=== PATIENT | female | born 1990 | race Hispanic/Latino ===

== ENCOUNTER 2022-12-27 21:58 | Emergency (ER) | payer OTHER, MEDICAID ==
[~2022-12-27] VITALS: Ht 162.6 cm; Wt 120.0 kg
[2022-12-27 22:20] VITALS: BP 110/69
[2022-12-27 22:22] LABS: BASO% 0.3 % (0-3); EOS% 1.7 % (0-8); HEMATOCRIT 42.1 % (37.0-47.0); HEMOGLOBIN 13.7 g/dl (12.0-16.0); IMMATURE GRANULOCYTES 0.2 % (0.0-5.0); LYMPH% 43.3 % (15-41); MEAN CORPUSCULAR HGB 31.6 pG CALC (26.0-32.0); MEAN CORPUSCULAR HGB CONC 32.5 g/dL CAL (32.0-36.0); MONO% 5.5 % (2-13); NEUT# 5.17 thou/uL (2.00-7.15); RED BLOOD COUNT 4.34 mill/uL (4.20-5.60); RED CELL DISTRI WIDTH 12.2 % (11.5-15.5)
[2022-12-27 22:25] LABS: URINE BILIRUBIN - DIPSTICK NEGATIVE (NEGATIVE); URINE BLOOD DIPSTICK NEGATIVE (NEGATIVE); URINE COLOR YELLOW; URINE GLUCOSE - DIPSTICK NEGATIVE (NEGATIVE); URINE KETONE NEGATIVE (NEGATIVE); URINE LEUK ESTERASE NEGATIVE (NEGATIVE); URINE PH 5.5 (4.5-8.0); URINE PROTEIN - DIPSTICK NEGATIVE (NEG-TRACE); URINE SPECIFIC GRAVITY 1.015; URINE UROBILINOGEN - DIPSTICK 0.2 E.U./dL (0.2)
[2022-12-27 22:28] LABS: URINE NITRITE - DIPSTICK NEGATIVE (Negative)
[2022-12-27 22:30] VITALS: BP 105/64
[2022-12-27 22:36] LABS: ALBUMIN 4.9 g/dL (3.2-5.0); ALKALINE PHOSPHATASE 46 u/l (38-126); ANION GAP 23 (6-22 (CALC)); BILIRUBIN, TOTAL 0.1 mg/dL (0.02-1.3); BUN 8 mg/dL (7-17); BUN/CREATININE RATIO 9 (12-20 (CALC)); CARBON DIOXIDE 18 mmol/l (22-30); CHLORIDE 108 mmol/l (95-108); CREATININE 0.9 mg/dL (0.5-1.0); ETHYL ALCOHOL 246 mg/dl (0-30); GFR FOR AFR.AMER. > 60 ML/MIN (>=60 (CALC)); GFR OTHER RACES > 60 ML/MIN (>=60 (CALC)); MAGNESIUM 1.9 mg/dL (1.6-2.3); POTASSIUM 4.1 mmol/l (3.5-5.1); SGOT/AST 32 u/l (14-36); SODIUM 145 mmol/l (137-146); TOTAL PROTEIN 7.5 g/dL (6.3-8.2)
[2022-12-27 22:46] VITALS: BP 109/61
[2022-12-27 23:19] VITALS: BP 118/81
[2022-12-27 23:46] VITALS: BP 112/58
[2022-12-28 00:05] VITALS: BP 112/58
== END 2022-12-28 00:05 | disposition home or self-care (01) | DRG 897 ==
LOC: EDBD 21:58 → ED 21:58
PROVIDERS: Family Medicine
DX: F12.988 Cannabis use, unspecified with other cannabis-induced disorder (principal); F10.129 Alcohol abuse with intoxication, unspecified; Y90.8 Blood alcohol level of 240 mg/100 ml or more